=== PATIENT | female | born 1975 | race Asian ===

== ENCOUNTER 2023-06-05 13:32 | Emergency (ER) | payer MEDICAID ==
[~2023-06-05] VITALS: Ht 152.4 cm; Wt 49.9 kg
[2023-06-05] MEDS ORDERED: IBUPROFEN 600 MG TABLET ONE (15:23)
[2023-06-05] MEDS: IBUPROFEN 600 MG TABLET PO ONE (15:26)
[2023-06-05 15:55] VITALS: BP 136/68; TEMP 98.2; O2SAT 98
== END 2023-06-05 15:56 | disposition home or self-care (01) ==
LOC: ER 13:58
DX: M75.21 Bicipital tendinitis, right shoulder (principal)
CPT/HCPCS: 73030-TC